=== PATIENT | female | born 1995 | race American Indian/Alaskan Native ===

== ENCOUNTER 2016-12-22 19:20 | Emergency (ER) | payer OTHER ==
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
--- NOTE | 2016-12-22 21:04 | XRay Report ---
FINAL REPORT PROCEDURE: XR SPINE CERVICAL 2-3V TECHNIQUE: Cervical spine radiographs, AP, lateral, and open-mouth odontoid views. CPT 68079 HISTORY: pain COMPARISON: No prior studies are available for comparison. FINDINGS: Prevertebral soft tissues: Normal . Alignment: There is straightening of the cervical spine. Vertebral body heights/Disk spaces: Normal . Fracture(s): None . Facets: Normal . Bone mineralization: Normal . IMPRESSION: Straightening of the cervical spine is most likely secondary to spasm. No acute fracture.
--- NOTE | 2016-12-22 21:04 | XRay Report ---
FINAL REPORT PROCEDURE: XR SPINE LUMBOSACRAL 2-3V TECHNIQUE: Lumbar spine radiographs, including AP, lateral, and lumbosacral spot views. CPT 41074 HISTORY: LUMBAR PAIN COMPARISON: No prior studies are available for comparison. FINDINGS: Alignment: Normal. Vertebral body heights/Disk spaces: Normal. Fracture(s): None. Facets: Normal. Bone mineralization: Normal. IMPRESSION: Normal Examination.
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
[2016-12-22] MEDS ORDERED: MOTRIN PO ONE (23:06)
[2016-12-23 00:40] VITALS: BP 140/81
== END 2016-12-22 23:24 | disposition home or self-care (01) ==
LOC: ED 19:20
DX: S13.4XXA Sprain of ligaments of cervical spine, initial encounter (principal); M79.671 Pain in right foot; M79.672 Pain in left foot; V49.59XA Passenger injured in collision with other motor vehicles in traffic accident, initial encounter; Y93.89 Activity, other specified; Y92.89 Other specified places as the place of occurrence of the external cause; Y99.8 Other external cause status
CPT/HCPCS: 72040; 72100; 81025; 99284